=== PATIENT | female | born 1950 | race Caucasian/White ===

== ENCOUNTER 2021-10-09 07:51 | Emergency (ER) | payer MEDICARE, MEDICAID ==
[~2021-10-09] VITALS: Ht 165.1 cm; Wt 76.8 kg
[2021-10-09 08:02] VITALS: BP 151/94
== END 2021-10-09 09:29 | disposition home or self-care (01) ==
LOC: ER 07:56
DX: M25.512 Pain in left shoulder (principal); Z88.2 Allergy status to sulfonamides
CPT/HCPCS: 29105; 73030; 99283